=== PATIENT | male | born 1980 | race African-American/Black ===

== ENCOUNTER 2023-10-15 15:27 | Outpatient (CLI) | payer OTHER | END 2023-10-15 15:28 | disposition home or self-care (01) | LOC: CSHRAD 15:27 | PROVIDERS: ATTEND Family Medicine | DX: M54.50 Low back pain, unspecified (principal); M25.561 Pain in right knee; M25.562 Pain in left knee; M47.816 Spondylosis without myelopathy or radiculopathy, lumbar region; M25.462 Effusion, left knee; M25.461 Effusion, right knee; M17.12 Unilateral primary osteoarthritis, left knee | CPT/HCPCS: 72100 ==